=== PATIENT | male | born 1965 | race Caucasian/White ===

== ENCOUNTER 2020-05-21 11:10 | Emergency (ER) | payer OTHER ==
[~2020-05-21] VITALS: Ht 175.3 cm; Wt 97.7 kg
[2020-05-21] MEDS ORDERED: BACTRIM DS 8001 TAB PO (12:50)
[2020-05-21 13:11] VITALS: BP 118/71; PULSE 85; TEMP 98.1
== END 2020-05-21 13:11 | disposition home or self-care (01) ==
LOC: COL.ER 11:10 → COL.RAD 11:10 → COL.ER 13:11
DX: N41.0 Acute prostatitis (principal); Z88.8 Allergy status to other drugs, medicaments and biological substances; Z90.49 Acquired absence of other specified parts of digestive tract
CPT/HCPCS: Q9967